=== PATIENT | female | born 1995 | race African-American/Black ===

== ENCOUNTER 2017-06-10 00:35 | Inpatient (IN) | payer OTHER ==
[2017-06-10] MEDS ORDERED: AMPICILLIN - 2 GM in SODIUM CHLORIDE 100 ML IVPB ONE (01:45)
[2017-06-10] MEDS ORDERED: PROMETHAZINE HCL 25 MG/1 ML VIAL IVPB ONE (02:00)
[2017-06-10] MEDS ORDERED: BUTORPHANOL TARTRATE 1 MG/ML VIAL IVPB ONE (02:00)
[2017-06-10 02:13] LABS: BASOPHIL 0.1 % (0-2.0); MCH 31.2 pg (25.7-33.7); MCHC 33.5 g/dl (32.0-36.0); MEAN CELL VOLUME 93.1 fl (80-96); MEAN PLT VOLUME 11.6 fl (7.5-11.1); NEUTROPHILS 77.6 % (42.8-82.8); PLATELET COUNT 136 K/MM3 (134-434); RDW 13.7 % (11.6-15.6); WHITE BLOOD COUNT 10.3 K/mm3 (4.0-10.0)
[2017-06-10 02:34] LABS: ANION GAP 14 (8-16); CALCIUM 8.2 mg/dL (8.5-10.1); CO2 18 mmol/L (21-32); CREATININE 0.7 mg/dL (0.55-1.02); GLUCOSE,RANDOM 162 mg/dL (74-106)
[2017-06-10 02:37] LABS: INR 0.97 (0.82-1.09); PROTHROMBIN TIME (PATIENT) 10.7 SEC (9.98-11.88)
[2017-06-10 02:40] LABS: ACTIVATED PTT 25.5 SECONDS (26.9-34.4)
[2017-06-10] MEDS ORDERED: DEXTROSE 5%-LACTATED RINGERS 1,000 ML IV SCH (02:45)
[2017-06-10 02:56] LABS: PLATELET COMMENT2 NO CLOTTING DETECTED; PLATELET COMMENT3 FEW GIANT PLTS; PLATELET ESTIMATE SLT DECREASED (NORMAL)
[2017-06-10 03:00] VITALS: BMI 41.9
--- NOTE | 2017-06-10 03:47 | PN ---
Progress Note (short form) - Note Progress Note: cx 310 am cx 8 cm 100 vx 0 arom clear, fhr cat1, contraction q 2 min
--- NOTE | 2017-06-10 03:53 | HP ---
Past Medical History - Primary Care Physician PCP:: Tj Johansen - Admission Chief Complaint: 40,4 weeks, labor, obesity History of Present Illness: 22 yo f edc by sono 06/06/17 c/o contraction, no rom, no bleeding, vx 5 cm, 80 vx -1 mi, fhr cat 1, contractions regular q 2 to 3 min History Source: Patient Limitations to Obtaining History: No Limitations - Past Medical History ...: 3 ...Para: 1 ...Term: 1 ...LMP: 08/30/16 ... Weeks Gestation by Dates: 40.4 ...EDC by Dates: 06/06/17 ...EDC by Sono: 06/06/17 - Past Surgical History Hx Myomectomy: No Hx Transabdominal Cerclage: No - Smoking History Smoking history: Never smoked Have you smoked in the past 12 months: No Aproximately how many cigarettes per day: 2 - Alcohol/Substance Use Hx Alcohol Use: No - Social History ADL: Independent History of Recent Travel: No Home Medications - Allergies Allergies/Adverse Reactions: Allergies Allergy/AdvReac Type Severity Reaction Status Date / Time No Known Allergies Allergy Verified 03/28/14 13:27 - Home Medications Home Medications: Ambulatory Orders No Home Medications 0 dose .ROUTE UTDICT 11/03/13 Ibuprofen [Motrin -] 600 mg PO TID PRN #90 tablet 07/08/14 Review of Systems - Review of Systems Constitutional: reports: No Symptoms Eyes: reports: No Symptoms HENT: reports: No Symptoms Neck: reports: No Symptoms Cardiovascular: reports: No Symptoms Respiratory: reports: No Symptoms Gastrointestinal: reports: No Symptoms Genitourinary: reports: No Symptoms Breasts: reports: No Symptoms Reported Musculoskeletal: reports: No Symptoms Integumentary: reports: No Symptoms Neurological: reports: No Symptoms Endocrine: reports: No Symptoms Hematology/Lymphatic: reports: No Symptoms Psychiatric: reports: No Symptoms Physical Exam - Maternity Vital Signs: Vital Signs Temperature 98.6 F 06/10/17 02:36 Pulse Rate 100 H 06/10/17 02:00 Respiratory Rate 20 06/10/17 02:00 Blood Pressure 144/76 06/10/17 02:00 O2 Sat by Pulse Oximetry (%) Constitutional: Yes: Well Nourished, No Distress, Calm Eyes: Yes: WNL, Conjunctiva Clear, EOM Intact HENT: Yes: WNL, Atraumatic, Normocephalic Neck: Yes: WNL, Supple, Trachea Midline Cardiovascular: Yes: WNL, Regular Rate and Rhythm Breast(s): Yes: WNL - Abdominal Exam/OB Fundal Height: 40 Number of Fetuses: Single Presentation: Vertex Contractions: Yes Regularity: Regular Intensity: Mod/Strong Monitor Mode: External Heart Rate Location: [place] Category: I Accelerations: Uniform - Vaginal Exam/OB Vaginal Bleediing: No Speculum Exam: No Dilatation (cm): 5 cm Effacement (%): 80 Amniotic Membrane Status: Intact Presentation: Vertex/Position Station: -2 - Physical Exam Musculoskeletal: Yes: WNL Extremities: Yes: WNL Edema: Yes Edema: LLE: Trace, RLE: Trace Deep Tendon Reflex Grade: Normal +2 ...Motor Strength: WNL Psychiatric: Yes: WNL - Labs Lab Results: CBC, BMP 06/10/17 01:45 06/10/17 01:45 Hemorrhage Risk Assessment - Risk Factors Medium Risk Factors: Yes: None High Risk Factors: Yes: None Risk Score: 1 Risk Level: Medium Risk Problem List - Problems (1) Post term over 40 weeks Code(s): O48.0 - POST-TERM (2) Labor established Code(s): OIQ0825 - (3) Obesities, morbid Code(s): E66.01 - MORBID (SEVERE) OBESITY DUE TO EXCESS CALORIES Assessment/Plan admit . in labor for vaginal delivery, FHM
[2017-06-10] MEDS ORDERED: oxyCODONE HCL 5 MG TABLET PO PRN (04:34)
[2017-06-10] MEDS ORDERED: BENZOCAINE 20% 57 GM BOTTLE TP PRN (04:34)
[2017-06-10] MEDS ORDERED: BENZOCAINE 28 GM HEMORRHOIDAL OINTMENT TP PRN (04:34)
[2017-06-10] MEDS ORDERED: METHYLERGONOVINE MALEATE 0.2 MG/1 ML AMP IM PRN (04:34)
[2017-06-10] MEDS ORDERED: WITCH HAZEL 50% (TUCKS) 40 PAD/JAR PAD TP PRN (04:34)
[2017-06-10] MEDS ORDERED: BISACODYL 10 MG SUPP.RECT RC PRN (04:34)
--- NOTE | 2017-06-10 04:41 | PN ---
Progress Note (short form) - Note Progress Note: 4 am cx full 100 ,vx 2+ ,mr, fhr cat 1 , wants to push Problem List - Problems (1) Post term over 40 weeks Code(s): O48.0 - POST-TERM (2) Labor established Code(s): [id number] - (3) Obesities, morbid Code(s): E66.01 - MORBID (SEVERE) OBESITY DUE TO EXCESS CALORIES
[2017-06-10] MEDS ORDERED: D5W-LR W/ 20 UNITS OXYTOCIN 1,000 ML IV SCH (04:45)
[2017-06-10 05:19] LABS: VENOUS BLOOD GAS HCO3 18.9 meq/L (19-25); VENOUS PH 7.29 (7.32-7.42)
[2017-06-10] MEDS: PRENATAL VITAMINS W/ FOLIC ACID TABLET (FP) PO SCH (09:20)
[2017-06-10] MEDS: FERROUS SO4 325 MG TABLET (FP) PO SCH ×2 (09:20→22:04)
[2017-06-11] MEDS: AMPICILLIN - 1 GM in SODIUM CHLORIDE 100 ML IVPB SCH ×2 (02:58→08:44)
[2017-06-11 08:47] LABS: BASOPHIL 0.3 % (0-2.0); EOSINOPHIL 0.4 % (0-4.5); MCH 30.7 pg (25.7-33.7); MCHC 32.8 g/dl (32.0-36.0); MEAN CELL VOLUME 93.5 fl (80-96); MEAN PLT VOLUME 11.2 fl (7.5-11.1); NEUTROPHILS 63.5 % (42.8-82.8); PLATELET COUNT 118 K/MM3 (134-434); RDW 13.7 % (11.6-15.6); WHITE BLOOD COUNT 8.8 K/mm3 (4.0-10.0)
[2017-06-11] MEDS: PRENATAL VITAMINS W/ FOLIC ACID TABLET (FP) PO SCH (09:44)
[2017-06-11] MEDS: FERROUS SO4 325 MG TABLET (FP) PO SCH ×2 (10:54→21:30)
[2017-06-11] MEDS: ACETAMINOPHEN 325 MG TABLET (FP) PO PRN ×2 (12:29→19:01)
--- NOTE | 2017-06-11 13:50 | PN ---
Post Progress Note Post Day: 1 Type of Delivery: Vital Signs: Vital Signs Temperature 98.3 F 06/11/17 10:00 Pulse Rate 74 06/11/17 10:00 Respiratory Rate 20 06/11/17 10:00 Blood Pressure 124/76 06/11/17 10:00 O2 Sat by Pulse Oximetry (%) Breast Exam: Yes: Soft Uterus: Yes: Fundus Firm Abdomen/GI: Yes: Abdomen soft Lochia: Yes: Rubra Lochia, amount: Small Extremities: Yes: Calves non-tender Perineum: Yes: Intact Activity: Ambulating - Labs Labs: CBC WBC 8.8 K/mm3 (4.0-10.0) 06/11/17 08:10 RBC 3.53 M/mm3 (3.60-5.2) L 06/11/17 08:10 Hgb 10.8 GM/dL (10.7-15.3) 06/11/17 08:10 Hct 33.0 % (32.4-45.2) 06/11/17 08:10 MCV 93.5 fl (80-96) 06/11/17 08:10 MCH 30.7 pg (25.7-33.7) 06/11/17 08:10 MCHC 32.8 g/dl (32.0-36.0) 06/11/17 08:10 RDW 13.7 % (11.6-15.6) 06/11/17 08:10 Plt Count 118 K/MM3 (134-434) L 06/11/17 08:10 MPV 11.2 fl (7.5-11.1) H 06/11/17 08:10 Neutrophils % 63.5 % (42.8-82.8) 06/11/17 08:10 Lymphocytes % 28.1 % (8-40) D 06/11/17 08:10 Monocytes % 7.7 % (3.8-10.2) 06/11/17 08:10 Eosinophils % 0.4 % (0-4.5) D 06/11/17 08:10 Basophils % 0.3 % (0-2.0) 06/11/17 08:10 Platelet Estimate Slt decreased (NORMAL) 06/10/17 01:45 Platelet Comment No clumping noted 06/10/17 01:45 Platelet Comment No clotting detected 06/10/17 01:45 Assessment/Plan ppd#2 doing well no issues continue care anticipate dc tomorrow
[2017-06-11] MEDS: IBUPROFEN 600 MG TABLET (FP) PO PRN (19:02)
[2017-06-11] MEDS ORDERED: SENNOSIDES/DOCUSATE COMBO (SENNA PLUS) TABLET (UD) PO PRN (22:00)
[2017-06-12] MEDS: IBUPROFEN 600 MG TABLET (FP) PO PRN (05:41)
[2017-06-12] MEDS: ACETAMINOPHEN 325 MG TABLET (FP) PO PRN (05:41)
[2017-06-12] MEDS: FERROUS SO4 325 MG TABLET (FP) PO SCH (09:04)
[2017-06-12] MEDS: PRENATAL VITAMINS W/ FOLIC ACID TABLET (FP) PO SCH (09:04)
[2017-06-12 09:34] VITALS: BP 124/72; PULSE 74; TEMP 98.7
== END 2017-06-12 13:20 | disposition home or self-care (01) | DRG 560 ==
LOC: JLDR 00:35 → J3N 09:00 → J3W 06-11 17:16
PROVIDERS: ADMIT Obstetrics & Gynecology; ATTEND Obstetrics & Gynecology
PROC: 10E0XZZ Delivery of Products of Conception, External Approach (ICD-10-PCS; principal; 2017-06-10)
DX: O48.0 Post-term pregnancy (principal); Z3A.40 40 weeks gestation of pregnancy; O99.214 Obesity complicating childbirth; E66.01 Morbid (severe) obesity due to excess calories; Z68.41 Body mass index [BMI] 40.0-44.9, adult; Z37.0 Single live birth
CPT/HCPCS: 36415; 59409; 80048; 82803; 85025; 85610; 85730; 86593; 86850; 86900; 86901

== ENCOUNTER 2018-11-16 16:36 | Emergency (ER) | payer OTHER ==
[2018-11-16 17:35] VITALS: BP 138/76; PULSE 89; TEMP 98.8; BMI 39.1
--- NOTE | 2018-11-16 17:36 | PDOC ---
Rapid Medical Evaluation Chief Complaint: Cold Symptoms Time Seen by Provider: 11/16/18 17:32 Medical Evaluation: Allergies Allergy/AdvReac Type Severity Reaction Status Date / Time No Known Allergies Allergy Verified 11/16/18 17:32 11/16/18 17:33 I have performed a brief in-person evaluation of this patient. The patient presents with a chief complaint of: cough / fevers/ x 2days Pertinent physical exam findings: Cough, congested I have ordered the following: Influenza The patient will proceed to the ED for further evaluation. 11/16/18 17:36 Discharge Disposition - Diagnosis Cough - Referrals - Patient Instructions - Post Discharge Activity
[2018-11-16] MEDS ORDERED: IBUPROFEN 600 MG TABLET (FP) PO ONE ×2 (18:55→19:07)
--- NOTE | 2018-11-16 18:55 | PDOC ---
History of Present Illness - General Chief Complaint: Cold Symptoms Stated Complaint: BACK PAIN/ COLD SYMPTOMS Time Seen by Provider: 11/16/18 17:32 History Source: Patient - History of Present Illness Initial Comments: 11/16/18 19:08 23-year-old female complaining of nasal congestion, cough, throat pain for the past 2 days. Patient reports that son is diagnosed with the flu and daughter with URI symptoms. Patient reports taking Mucinex with no some improvement in pain.Denies fevers/chills, nausea, vomiting, diarrhea, abdominal pain, urinary symptoms 11/16/18 19:09 Past History - Past Medical History Allergies/Adverse Reactions: Allergies Allergy/AdvReac Type Severity Reaction Status Date / Time No Known Allergies Allergy Verified 11/16/18 18:45 Home Medications: Ambulatory Orders NK [No Known Home Medication] 11/16/18 Asthma: No Cancer: No Cardiac Disorders: No Diabetes: No HTN: No Seizures: No Thyroid Disease: No - Reproductive History (#): 2 Para: 0 Cervical CA: No Dysfunctional Uterine Bleeding: No Ectopic : No Endometrial CA: No Polycystic Ovaries: No Therapeutic (s) & number: Yes Tubal Ligation: No Spontaneous : 0 - Suicide/Smoking/Psychosocial Hx Smoking History: Current every day smoker Have you smoked in the past 12 months: No Number of Cigarettes Smoked Daily: 10 Information on smoking cessation initiated: No Hx Alcohol Use: No Drug/Substance Use Hx: No Hx Substance Use Treatment: No Review of Systems - Review of Systems Able to Perform ROS?: Yes Is the patient limited Greenlandic proficient: No *Physical Exam - Vital Signs Last Vital Signs Temp Pulse Resp BP Pulse Ox 98.8 F 89 18 138/76 100 11/16/18 17:33 11/16/18 17:33 11/16/18 17:33 11/16/18 17:33 11/16/18 17:33 - Physical Exam General Appearance: Yes: Appropriately Dressed HEENT: positive: Pharyngeal Erythema, Tonsillar Erythema, Nasal Congestion Respiratory/Chest: positive: Lungs Clear, Normal Breath Sounds Cardiovascular: positive: Regular Rhythm, Regular Rate Gastrointestinal/Abdominal: positive: Normal Bowel Sounds, Soft Musculoskeletal: positive: Normal Inspection Extremity: positive: Normal Capillary Refill, Normal Inspection, Normal Range of Motion Integumentary: positive: Normal Color, Dry, Warm Neurologic: positive: water system operator II-XII NML intact, Fully Oriented, Alert, Normal Mood/ Affect, Motor Strength 5/5 Moderate Sedation - Procedure Monitoring Vital Signs: Procedure Monitoring Vital Signs Temperature 98.8 F 11/16/18 17:33 Pulse Rate 89 11/16/18 17:33 Respiratory Rate 18 11/16/18 17:33 Blood Pressure 138/76 11/16/18 17:33 O2 Sat by Pulse Oximetry (%) 100 11/16/18 17:33 Progress Note - Progress Note Progress Note: A: pharyngitis; flu like illness P: rapid strep influenza pain control *DC/Admit/Observation/Transfer Diagnosis at time of Disposition: Cough, Flu-like symptoms Pharyngitis Qualifiers: Pharyngitis/tonsillitis etiology: unspecified etiology Qualified Code(s): J02.9 - Acute pharyngitis, unspecified - Discharge Dispostion Disposition: HOME - Referrals Referrals: Carlos Alberto Frazier MD [Primary Care Provider] - - Patient Instructions Printed Discharge Instructions: DI for Common Cold Additional Instructions: gargle with warm salty water take tylenol every 6 hours as needed for pain take ibuprofen every 6hours as needed for pain follow up with your doctor as soon as possible. Additional Instructions: * Please call your personal physician to report your Emergency Department visit and to report your progress, if any. * If there is no improvement in symptoms in 2 days call your physician. * Return to the Emergency Department for any worsening symptoms. - Post Discharge Activity Forms/Work/School Notes: Back to Work
== END 2018-11-16 21:02 | disposition home or self-care (01) ==
LOC: JERFT 16:36
DX: J11.1 Influenza due to unidentified influenza virus with other respiratory manifestations (principal)
CPT/HCPCS: 87070; 87077; 87804; 87880; 99281-25

== ENCOUNTER 2019-09-25 10:16 | Emergency (ER) | payer OTHER ==
[2019-09-25 10:49] VITALS: BP 133/80; PULSE 90; TEMP 99; BMI 41.5
--- NOTE | 2019-09-25 11:01 | PDOC ---
History of Present Illness - General Chief Complaint: Cold Symptoms Stated Complaint: FEVER/ COUGH Time Seen by Provider: 09/25/19 10:49 History Source: Patient - History of Present Illness Timing/Duration: reports: other Past History - Past Medical History Allergies/Adverse Reactions: Allergies Allergy/AdvReac Type Severity Reaction Status Date / Time No Known Allergies Allergy Verified 09/25/19 10:45 Home Medications: Ambulatory Orders Amoxicillin - [Amoxicillin 500mg Capsule -] 500 mg PO BID #20 capsule 11/21/18 Asthma: No Cancer: No Cardiac Disorders: No COPD: No Diabetes: No HTN: No Seizures: No Thyroid Disease: No - Reproductive History (#): 2 Para: 0 Cervical CA: No Dysfunctional Uterine Bleeding: No Ectopic : No Endometrial CA: No Polycystic Ovaries: No Therapeutic (s) & number: Yes Tubal Ligation: No Spontaneous : 0 - Immunization History Immunization Up to Date: Yes - Psycho Social/Smoking Cessation Hx Smoking History: Never smoked Have you smoked in the past 12 months: No Number of Cigarettes Smoked Daily: 10 Information on smoking cessation initiated: No Hx Alcohol Use: No Drug/Substance Use Hx: No Hx Substance Use Treatment: No Review of Systems - Review of Systems Constitutional: No: Chills, Fever HEENTM: No: Ear Pain, Throat Pain Respiratory: Yes: Cough *Physical Exam - Vital Signs Last Vital Signs Temp Pulse Resp BP Pulse Ox 99.0 F 90 17 133/80 100 09/25/19 10:46 09/25/19 10:46 09/25/19 10:46 09/25/19 10:46 09/25/19 10:46 - Physical Exam General Appearance: Yes: Appropriately Dressed. No: Apparent Distress HEENT: positive: Normal Voice. negative: Scleral Icterus (R), Scleral Icterus ( L) Neck: positive: Supple. negative: Lymphadenopathy (R), Lymphadenopathy (L) Respiratory/Chest: positive: Lungs Clear, Normal Breath Sounds. negative: Respiratory Distress Cardiovascular: positive: Regular Rate, S1, S2 Integumentary: positive: Dry, Warm Neurologic: positive: Fully Oriented, Alert, Normal Mood/Affect Medical Decision Making - Medical Decision Making 09/25/19 10:58 24-year-old female, no significant history, here with cough, congestion and headache x 5 days. No fever or body aches see exma Viral syndrome Exam unremarkable Flu neg Dc w/ supportive tx 09/25/19 12:21 Flu neg. Dc w/ supportive tx Discharge - Discharge Information Problems reviewed: Yes Clinical Impression/Diagnosis: Viral syndrome Condition: Good Disposition: HOME - Follow up/Referral Referrals: Carlos Alberto Frazier MD [Primary Care Provider] - - Patient Discharge Instructions Patient Printed Discharge Instructions: DI for Viral Syndrome Additional Instructions: Your flu test is negative Rest, drink plenty fluids and take [id number] medicine for symptoms as needed - Post Discharge Activity Work/Back to School Note: Back to Work
== END 2019-09-25 12:32 | disposition home or self-care (01) ==
LOC: SUPCPDRO 10:16 → JERFT 10:16
DX: B34.9 Viral infection, unspecified (principal)
CPT/HCPCS: 87804; 99281-25

== ENCOUNTER 2020-05-04 23:32 | Emergency (ER) | payer OTHER ==
[2020-05-04 23:49] VITALS: BP 134/78; PULSE 92; TEMP 98.8; BMI 41.1
--- NOTE | 2020-05-05 00:10 | PDOC ---
History of Present Illness - General Chief Complaint: Lightheaded Stated Complaint: DIZZINESS Time Seen by Provider: 05/05/20 00:09 History Source: Patient Exam Limitations: No Limitations - History of Present Illness Initial Comments: 05/05/20 00:34 25yF w PMhx morbid obesity presenting w sudden onset severe L sided headache while laying in bed at 10pm, w subsequent heart palpitations and lightheadedness. Palpitations and headache resolved after drinking a cup of water. Now complaining of minimal lightheadedness. Denies vision change, n/v, chest pain, SOB, extremity numbness/weakness. Past History - Medical History Allergies/Adverse Reactions: Allergies Allergy/AdvReac Type Severity Reaction Status Date / Time No Known Allergies Allergy Verified 05/04/20 23:48 Home Medications: Ambulatory Orders Amoxicillin - [Amoxicillin 500mg Capsule -] 500 mg PO BID #20 capsule 11/21/18 Asthma: No Cancer: No Cardiac Disorders: No COPD: No Diabetes: No HTN: No Seizures: No Thyroid Disease: No - Reproductive History Is Patient Now?: No (#): 2 Para: 0 Cervical CA: No Dysfunctional Uterine Bleeding: No Ectopic : No Endometrial CA: No Polycystic Ovaries: No Therapeutic (s) & number: Yes Tubal Ligation: No Spontaneous : 0 - Immunization History Immunization Up to Date: Yes - Psycho-Social/Smoking History Smoking History: Current every day smoker Have you smoked in the past 12 months: Yes Number of Cigarettes Smoked Daily: 4 Information on smoking cessation initiated: No - Substance Abuse Hx (Audit-C & DAST Scrn) How often the patient has a drink containing alcohol: Monthly or less Number of drinks the patient has on a typical day: 1 or 2 How often the patient has six or more drinks on one occasion: Never Score: In Men: 4 or > Positive; In Women: 3 or > Positive: 1 Screen Result (Pos requires Nsg. Audit-10AR): Negative In the last yr the pt used illegal drug/Rx for NonMed reason: No Score: Yes response is considered Positive: 0 Screen Result (Positive result requires Nsg. DAST-10): Negative Review of Systems - Review of Systems Constitutional: No: Chills HEENTM: No: Eye Pain, Ear Discharge Respiratory: No: Cough, Shortness of Breath Cardiac (ROS): Yes: Chest Pain, Lightheadedness, Palpitations ABD/GI: No: Constipated, Diarrhea, Nausea, Vomiting : No: Burning, Dysuria Musculoskeletal: No: Back Pain, Joint Pain Integumentary: No: Bruising, Dryness Neurological: Yes: Headache. No: Seizure Endocrine: No: Intolerance to Cold, Intolerance to Heat Hematologic/Lymphatic: No: Anemia, Blood Clots *Physical Exam - Vital Signs Last Vital Signs Temp Pulse Resp BP Pulse Ox 98.8 F 92 H 18 134/78 99 05/04/20 23:44 05/04/20 23:44 05/04/20 23:44 05/04/20 23:44 05/04/20 23:44 - Physical Exam General Appearance: Yes: Nourished, Appropriately Dressed. No: Apparent Distress HEENT: positive: EOMI, CARISSA, Normal Voice, Hearing Grossly Normal. negative: Scleral Icterus (R), Scleral Icterus (L) Respiratory/Chest: positive: Lungs Clear, Normal Breath Sounds. negative: Chest Tender, Respiratory Distress Cardiovascular: positive: Regular Rhythm, Regular Rate, S1, S2. negative: Edema, Murmur Gastrointestinal/Abdominal: positive: Normal Bowel Sounds, Flat, Soft. 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 negative: Facial Droop, Numbness, Confused, Disoriented Medical Decision Making - Medical Decision Making 05/05/20 00:36 EKG Normal sinus rhythm No vergata Normal intervals Normal axis No acute ischemia Nonspecific T wave inversion --- 25yF w PMhx morbid obesity presenting w sudden onset severe L sided headache while laying in bed at 10pm, w subsequent heart palpitations and lightheadedness likely d/t vasovagal episode. Not , no concerning EKG changes, no persistent symptoms or focal neuro deficits Given PO fluids DC home w PCP f/u Discharge - Discharge Information Problems reviewed: Yes Clinical Impression/Diagnosis: Vasovagal episode Condition: Good Disposition: HOME - Follow up/Referral Referrals: Christian Burk PA [Primary Care Provider] - - Patient Discharge Instructions Additional Instructions: Your workup did not show anything concerning. You likely had a vasovagal episode Drink lots of water Take tylenol or ibuprofen if you have pain Follow up with your primary care doctor - Post Discharge Activity
--- NOTE | 2020-05-05 18:14 | EKG ---
Test Reason : Blood Pressure : / mmHG Vent. Rate : 074 BPM Atrial Rate : 074 BPM P-R Int : 138 ms QRS Dur : 086 ms QT Int : 416 ms P-R-T Axes : 030 009 000 degrees QTc Int : 461 ms NORMAL SINUS RHYTHM MINIMAL VOLTAGE CRITERIA FOR LVH, MAY BE NORMAL VARIANT BORDERLINE ECG NO PREVIOUS ECGS AVAILABLE Confirmed by ASHLEE STEELE MD ([id number]) on 05/05/2020 6:14:23 PM Referred By: Confirmed By:ASHLEE STEELE MD
--- NOTE | 2020-05-05 23:48 | PDOC ---
Documentation entered by Carlos Tate SCRIBE, acting as scribe for Prosper Johnson DO. Prosper Johnson DO: This documentation has been prepared by the Bebeto harrington Alexis, SCRIBE, under my direction and personally reviewed by me in its entirety. I confirm that the documentation accurately reflects all work, treatment, procedures, and medical decision making performed by me. Attending Attestation - Resident Resident Name: Otf Mack - ED Attending Attestation I have performed the following: I have examined & evaluated the patient, The case was reviewed & discussed with the resident, I agree w/resident's findings & plan, Exceptions are as noted - HPI HPI: 05/05/20 00:54 Agree with resident - Physicial Exam PE: 05/05/20 00:54 Agree with resident - Medical Decision Making 05/05/20 00:53 Agree with resident EKG Normal sinus rhythm No vergata Normal intervals Normal axis No acute ischemia Nonspecific T wave inversion Discharge - Discharge Information Problems reviewed: Yes Clinical Impression/Diagnosis: Vasovagal episode Condition: Good Disposition: HOME - Follow up/Referral Referrals: Christian Burk PA [Primary Care Provider] - - Patient Discharge Instructions Additional Instructions: Your workup did not show anything concerning. You likely had a vasovagal episode Drink lots of water Take tylenol or ibuprofen if you have pain Follow up with your primary care doctor - Post Discharge Activity
== END 2020-05-05 01:56 | disposition home or self-care (01) ==
LOC: JER 23:32
DX: R55 Syncope and collapse (principal)
CPT/HCPCS: 82962; 84703; 93005; 93010; 99284-25